=== PATIENT | male | born 1955 | race Caucasian/White ===

== ENCOUNTER → 2016-11-25 19:10 | Outpatient (CLI) | payer OTHER ==
[2016-11-28 03:11] LABS: TESTOSTERONE - FREE 5.8 pg/mL (6.6-18.1); TESTOSTERONE - SERUM 434 ng/dL (348-1197)
== END | disposition home or self-care (01) ==
LOC: D.LABREF 19:10
PROVIDERS: Family Medicine
DX: N52.9 Male erectile dysfunction, unspecified (principal)